=== PATIENT | male | born 1985 | race Caucasian/White ===

== ENCOUNTER 2018-06-13 17:05 | Emergency (ER) | payer SELFPAY ==
[~2018-06-13] VITALS: Ht 190.5 cm; Wt 102.1 kg
[2018-06-13 17:21] VITALS: BP 104/61
== END 2018-06-13 19:25 | disposition home or self-care (01) ==
LOC: ER 17:07
DX: Z76.0 Encounter for issue of repeat prescription (principal); G89.29 Other chronic pain
CPT/HCPCS: 99283; A4606; Z7610